=== PATIENT | male | born 1985 | race Two or more races ===

== ENCOUNTER 2017-11-08 07:27 | Emergency (ER) | payer SELFPAY ==
[~2017-11-08] VITALS: Ht 177.8 cm; Wt 108.4 kg
[2017-11-08 07:39] VITALS: Ht 177.8 cm; Wt 108.4 kg
[2017-11-08 08:39] LABS: PLATELET COUNT 238 x10^3mcL (130-400); RED CELL DISTRIBUTION WIDTH 14.1 % (11.5-14.5)
[2017-11-08 08:44] LABS: CALCIUM 9.6 mg/dL (8.5-10.1); CARBON DIOXIDE 26.8 mmol/L (21-32); CHLORIDE SERUM 102 mmol/L (98-107); CREATININE SERUM 1.1 mg/dL (0.7-1.3); GFR1 > 60 mL/min; GLUCOSE SERUM 154 mg/dL (74-106); POTASSIUM SERUM 4.2 mmol/L (3.5-5.1); SODIUM SERUM 140 mmol/L (136-145)
[2017-11-08 08:48] LABS: ALBUMIN 4.8 g/dL (3.4-5.0); ALKALINE PHOSPHATASE 60 U/L (46-116); ALT/SGPT 32 U/L (16-63); AMYLASE 105 U/L (25-115); AST/SGOT 17 U/L (15-37); BILIRUBIN TOTAL 0.44 mg/dL (0.20-1.00); LIPASE 173 IU/L (73-393); TOTAL PROTEIN, SERUM 8.6 g/dL (6.4-8.2)
[2017-11-08 08:52] LABS: BASOPHIL % 0 % (0-2)
[2017-11-08 09:19] VITALS: BP 141/80
== END 2017-11-08 10:05 | disposition home or self-care (01) ==
LOC: ED 07:27
PROVIDERS: Emergency Medicine
DX: K80.20 Calculus of gallbladder without cholecystitis without obstruction (principal); N28.89 Other specified disorders of kidney and ureter
CPT/HCPCS: 83880; J1885; J2405; J3010; Q0092